=== PATIENT | female | born 1940 | race Caucasian/White ===

== ENCOUNTER 2017-12-15 08:18 | Inpatient (IN) | payer OTHER, SELFPAY ==
[2017-12-02 07:38] VITALS: BMI 27.1
[2017-12-15] VITALS (9 sets, daily range): BP systolic 114–139; BP diastolic 72–86; PULSE 64–93; RESP 14–18; TEMP 36–37; O2SAT 93–100; BMI 26.6
[2017-12-15] MEDS: LACTATED RINGERS 1,000 ML 42 ML IV ×2 (09:05→12:48)
[2017-12-15] MEDS: PREGABALIN 75 MG CAPSULE PO (09:12)
[2017-12-15] MEDS: MELOXICAM 7.5 MG TABLET 15 MG PO (09:12)
[2017-12-15] MEDS: ACETAMINOPHEN 325 MG TABLET 975 MG PO ×3 (09:12→20:28)
--- NOTE | 2017-12-15 10:33 | PM.PREOP ---
Pre-operative Note Interval Note Pre-op Check: Yes History & Physical Reviewed by Physician and Yes Exam Performed Changes: No
--- NOTE | 2017-12-15 10:33 | PM.OP.1 ---
Operative Date/Time/Diagnoses Date of procedure: 12/15/17 Time of procedure: 12:30 Pre-op diagnosis: Right knee osteoarthritis Post-op diagnosis: same Procedure & Clinicians Procedure: Right total knee replacement Same procedure as scheduled: Yes Indications: The patient has had progressively worsening right knee pain with radiographic changes consistent with arthritis. Non-operative management has failed and the patient has requested total knee replacement. The risks, benefits and alternatives to surgery were discussed with the patient prior to proceeding. Risks discussed included, but were not limited to, failure to relieve pain, stiffness, infection, nerve damage, deep venous thrombosis, pulmonary embolism, stroke, coma, heart attack, permanent paralysis and , as well as the potential need for eventual revision of the prosthetic. Surgeon: Bart Luevano Sales Representative Education Courses: Nai Morris Click Yes if Unassisted: No Anesthesia Type: General, Spinal and Local Operative Notes Findings: Significant lateral and moderate patellofemoral compartment osteoarthritis. Closure Type: primary Specimen(s): none sent Implants & Drains: Implants used in this procedure were manufactured by the [employer] and [employer] and included the BCS II Journey total knee replacement with a size 7 right cobalt chromium femur, a size 6 right non porous tibial base plate, a 10 mm crosslinked BCS II tibial insert, and a 35 mm oval Magaly II patellar component. Applied: implant(s) Estimated Blood Loss (mL): 100 Blood products transfused: none Tourniquet time (min): 52 Procedure in detail: The patient was seen in the pre-operative area, where the patient identified the right knee as the operative site and this was marked with my initials. The patient received pre-operative antibiotics, and was taken to the operating room and placed on the operative table in the supine position. After satisfactory anesthesia, a multimedia author out was performed. The right leg was encircled with a tourniquet about the proximal thigh, and the leg was prepared from the toes to the tourniquet with ChloroPrep in the usual fashion and draped through sterile drapes. The leg was elevated and exsanguinated with Eschmark bandage and the tourniquet inflated to 250 mmHg pressure. The knee was approached through an approximately 18 cm incision centered over the patella and carried into the knee through a medial parapatellar arthrotomy. The anterior osteophytes and soft tissues were removed. The rotational landmarks of [place]'s line and the transepicondylar axis were marked on the femur with electrocautery, and intramedullary guide holes for the femur and tibia were created. The distal femoral cut was made in 6 degrees of valgus using the intramedullary guide at the primary cut setting. The proximal tibial cut was then made using the intramedullary guide, taking 7 mm of bone off the less involved side. The extension gap was checked and the rotation of the femoral component confirmed with the gap balancing system. The anterior, posterior and chamfer cuts were then made. The posterior osteophytes and soft tissues were then removed. The posterior capsule was injected with part of a mixture of 50 ml 0.25% Marcaine mixed with 20 ml Exparel and 4 mg of morphine for post-operative pain control. The remainder of this mixture was injected into the capsule and subcutaneous tissues during cement curing. The tibia was prepared with the rotation set by an extra medullary guide. Trial tibial and femoral components were then placed and the intercondylar notch cut through the femoral trial. Range of motion was 0-140 degrees, with good stability throughout the range. The patella was then cut to accommodate the patellar prosthetic. There was no need for a lateral release. The trials were then removed, and the femoral hole plugged with a bone plug. The bone was prepared with pulsatile lavage, and dried with a sponge. Cement was applied and the final prosthetics placed. Excess cement was removed during and after cement curing. After confirming there was no extruded cement posteriorly, the final tibial insert was placed. The knee was copiously irrigated and the tourniquet deflated. Hemostasis was obtained. The capsule was closed with interrupted # 2 polyester suture. The subcutaneous layer was closed with 3-0 Vicryl, and the skin with a running 3-0 V-Lock suture and SteriStrips. An Aquacel Ag dressing was applied and the patient was taken to recovery having tolerated the procedure well. Complications: none Condition: stable Disposition: PACU Plan for aftercare: The patient will be maintained on a standard total knee replacement protocol with weight bearing as tolerated. The patient will receive aspirin and sequential compression devices for DVT prophylaxis. The patient will be discharged home when safe for the home environment.
--- NOTE | 2017-12-15 10:46 | SUR.PREOP ---
Block start time [1030] . Monitoring initiated and maintained throughout procedure. Oxygen and medications given per anesthesiologist instructions. Patient remained stable throughout procedure, no adverse reactions noted. Block end time [1039].
[2017-12-15] MEDS: CEFAZOLIN 1 GM VIAL IV (10:59)
[2017-12-15] MEDS: TRANEXAMIC ACID 1,000 MG VIAL 2000 MG INJ ×2 (11:20→12:16)
--- NOTE | 2017-12-15 11:30 | SUR.OPER ---
Supine on padded OR bed. Pillow under head, arms secured on padded armboards <90 degree abduction. Safety belt across torso. Non-operative leg secured with tape over blanket over lower leg. Operative leg secured in DeMayo/Maverick positioner. Foam padded brace at thigh of operative leg.
[2017-12-15] MEDS: BUPIVACAINE 0.25% W/ EPI VIAL 50 ML INJ (11:42)
[2017-12-15] MEDS: BUPIVACAINE LIPOSOME 266 MG/20 ML VIAL INJ (11:43)
--- NOTE | 2017-12-15 11:45 | PM.PROC.1 ---
Procedures Date/Time Date of procedure: 12/15/17 Time of procedure: 10:25 General Procedure description: Ultrasound guided adductor canal nerve block for post op pain control after right knee surgery by Dr. Luevano. Risk and benefits of procedure discussed with patient. ASA monitoring applied to patient. O2 given via nasal cannula. 1 mg Versed and 25 mcg fentanyl given for procedural sedation. Skin site was prepped with chlorhexidine and allowed to fully dry. Sterile gloves, mask, hat and probe cover were used to maintain sterility. 2% lidocaine and 30ga needle was used to make a small skin wheal at needle insertion site. Under ultrasound guidance, a 21ga 100mm Pajunk needle was directed into the adductor canal near femoral artery and saphenous nerve at the level of mid thigh. Patient reported no parasthesias. After negative aspiration, 20 mL 0.5% ropivicaine and 10mg dexamethasone were injected around saphenous nerve. Patient tolerated procedure well.
--- NOTE | 2017-12-15 11:48 | P.PCN_ITS ---
Procedures Date/Time Date of procedure: 12/15/17 Time of procedure: 10:25 General Procedure description: Ultrasound guided adductor canal nerve block for post op pain control after right knee surgery by Dr. Luevano. Risk and benefits of procedure discussed with patient. ASA monitoring applied to patient. O2 given via nasal cannula. 1 mg Versed and 25 mcg fentanyl given for procedural sedation. Skin site was prepped with chlorhexidine and allowed to fully dry. Sterile gloves, mask, hat and probe cover were used to maintain sterility. 2% lidocaine and 30ga needle was used to make a small skin wheal at needle insertion site. Under ultrasound guidance, a 21ga 100mm Pajunk needle was directed into the adductor canal near femoral artery and saphenous nerve at the level of mid thigh. Patient reported no parasthesias. After negative aspiration , 20 mL 0.5% ropivicaine and 10mg dexamethasone were injected around saphenous nerve. Patient tolerated procedure well.
[2017-12-15] MEDS: SODIUM CHLORIDE 0.9% FLUSH 15 ML IV (11:49)
--- NOTE | 2017-12-15 12:44 | DI.RAD.S_ITS ---
PROCEDURE: XR KNEE RT 1TO2V INDICATIONS: post operative total right knee TECHNIQUE: 2 views of the knee were acquired. COMPARISON: [facility] [place] [facility], KNEE SERIES RT, 01/15/2017, 7:26. FINDINGS: Bones: Interval placement of a right total knee arthroplasty with no periprosthetic fracture and for periprosthetic lucency to suggest loosening. There is anatomic alignment of the right knee. Soft tissues: There is a moderate-sized right knee joint effusion. There is subcutaneous emphysema within the soft tissues surrounding the right knee. IMPRESSION: Interval right total knee arthroplasty without evidence of acute hardware complication. Dictated by: Kaleb Devine M.D. on 12/15/2017 at 13:17 Approved by: Kaleb Devine M.D. on 12/15/2017 at 13:20
--- NOTE | 2017-12-15 13:17 | SUR.PHASEI ---
recd report and patient from Emily SABA. Patient resting NAD, no nausea and no pain spinal at L5 block still appears to be working. will call report to floor. Patient eatting ice chips. follows commands and arouses easy to voice.
[2017-12-15] MEDS: LACTATED RINGERS 1,000 ML 125 ML IV (15:01)
--- NOTE | 2017-12-15 16:54 | PC.NURSE ---
NAUSEA AND DIZZY WORKING WITH PT, PATIENT DID VOMIT A LITTLE.PT WILL WORK WITH AGAIN TOMORROW
--- NOTE | 2017-12-15 16:55 | PT.IIE ---
Current Diagnoses Unilateral primary osteoarthritis, right knee (12/15/17) Surgery Performed Operation Date: 12/15/17 10:15 Actual Procedures p Total Knee Arthroplasty(Right) - Bart Luevano MD Surgical History (Last Updated 12/02/17 @ 08:37 by Ania Call RN) Hx of adenoidectomy (Acute) Hx of dilation and curettage (Acute) Hx of tonsillectomy (Acute) Hx of tubal ligation (Acute) Medical History (Last Updated 12/02/17 @ 08:37 by Ania Call RN) Allergic rhinitis (Acute) Arthritis (Acute) Benign paroxysmal vertigo (Acute) Bilateral shoulder bursitis (Acute) Chronic low back pain (Acute) Generalized headaches (Acute) HTN (hypertension) (Acute) Hyperglycemia (Acute) Low magnesium level (Acute) Osteoporosis (Acute) Peripheral edema (Acute) Vasovagal syncope (Acute) Physical Therapy Inpatient Evaluation/Re-Eval M1 PT/OT-IP Prior Functional Status Start: 12/15/17 16:56 Freq: NEEDED Status: Active Protocol: Document 12/15/17 16:55 MDD (Rec: 12/15/17 17:09 MDD [id number]) Medical Review Prior Functional Status Medical History Reviewed Yes Communication normal Mobility and Gait independent with no AD Activities of Daily Living and IADL's independent Social History Household Members spouse Living Arrangements House Number of Floors (Floors) One Floor Number of Stairs To Enter/Railing? 2 steps to enter, no railings Home Environment Standard Height Toilet Tub/Shower Home Equipment Front Wheel Walker Raised Toilet Seat Without Armrests Shower Seat with Backrest Grab Bars Near Toilet Grab Bars In Shower Employment Status Retired Additional Social History Comment Pt lives in [place] with her , Raudel. Both her daughter and son are present during eval today as well, but do not live with them. M2 PT-IP Current Condition Start: 12/15/17 16:56 Freq: NEEDED Status: Active Protocol: Document 12/15/17 16:55 MDD (Rec: 12/15/17 17:09 MDD [id number]) Physical Therapy Current Condition Current Condition Evaluation Date 12/15/17 Treatment Diagnosis s/p R TKA Onset Date 12/15/17 Weight Bearing Status Weight Bearing Status Weight Bear as Tolerated M3 PT-IP Subjective Start: 12/15/17 16:56 Freq: NEEDED Status: Active Protocol: Document 12/15/17 16:55 MDD (Rec: 12/15/17 17:09 [facility] [id number]) Subjective Physical Therapy Visit Type Type Initial Evaluation Visit Start Time 16:37 Visit Stop Time 16:55 Total Visit Minutes 18 Notes BP supine: 122/77 mm Hg BP sitting EOB: 137/70 mm Hg Number of DIRECTOR ADVANCED Visits 0 Physical Therapy Visit Comments Patient Comments Pt reports dizziness/ lightheadedness when turning her head in bed. Denies nausea. Therapy Pain Assessment Pain When Pain Assessed At Rest Pain Present Pain Present Denied Pain M4 PT-IP Mobility and Gait Start: 12/15/17 16:56 Freq: NEEDED Status: Active Protocol: Document 12/15/17 16:55 MDD (Rec: 12/15/17 17:09 [facility] [id number]) PT-Bed Mobility Assessment Rolling Type of Rolling Roll to Left Level of Assist Independent Supine to Sit Supine to Sit Standby Assistance Head of Bed Elevated Bedrails Sit to Supine Sit to Supine Standby Assistance Head of Bed Elevated Bedrails PT-Transfer Assessment Comments Mobility Comments Pt reported dizziness sitting EOB for 2-3 minutes that did not improve and eventually vomited. Assisted pt return to bed. PT-Balance Assessment Sitting Balance and Reactions Static Sitting Balance Ability Normal Dynamic Sitting Balance Ability Normal M5 PT-IP Objective Assessments Start: 12/15/17 16:56 Freq: NEEDED Status: Active Protocol: Document 12/15/17 16:55 MDD (Rec: 12/15/17 17:09 [facility] [id number]) Orientation Orientation/Cognition Level of Alertness Alert Orientation Name Age Birthday Month Date Year Day of Week Place Situation Language Function Ability No Deficits Noted Safety Awareness Understands Safety Issues Memory Description No Deficits Noted Gross Range of Motion Lower Extremity ROM Assessment Within Functional Limits Strength Comments Strength Comments Pt demonstrates at least 3+/5 in major muscle groups today. Formal testing not performed as pt became nauseous and returned to bed. M6 PT-IP Treatment Start: 12/15/17 16:56 Freq: NEEDED Status: Active Protocol: Document 12/15/17 16:55 MDD (Rec: 12/15/17 17:09 [facility] [id number]) Physical Therapy Treatment Education Education Provided Weight Bearing Status Post-Op Packet Safety M7 PT-IP Assessment and Plan Start: 12/15/17 16:56 Freq: NEEDED Status: Active Protocol: Document 12/15/17 16:55 MDD (Rec: 12/15/17 17:09 MDD [id number]) PT Summary Assessment and Plan Potential Rehabilitation Potential Good Status of Condition at Evaluation Evolving Summary Impairments Pain ROM Bed Mobility Transfers Gait Activity Tolerance Progress Towards Goals Slow Progress due to Medical Issues Assessment Summary PT evaluation limited this day due to pt experiencing dizziness, nausea and vomiting when sitting EOB. She presents well below her functional baseline and will benefit from inpatient rehab to maximize function for safe d/c home. Pt does report a history of BPPV about 4 years ago after a fall and hitting her head. Daughter wonders if this may have become re- aggravated. No visible nystagmus noted today. PT will check back tomorrow am to reassess. Goals Bed Mobility Goal Independent Transfer Goal Independent Gait Goal Independent Front Wheel Walker Gait Distance 100 Other Goals ascend/descend 2 steps with handhold assist or cane ( whichever most appropriate) Days to Meet Goals 3 Frequency of Treatment Frequency Of Treatment Twice a Day Treatment Plan Physical Therapy Treatment Plan Bed Mobility Training Transfer Training Gait Training Therapeutic Exercise Post Op Education Recommendations To Nursing Amount of Assist Needed Independent PT/OT Assist Only Discharge Recommendations PT Discharge Recommendations Home Equipment Needed for Home Before Pt may benefit from using a Discharge cane for stairs at home.
[2017-12-15] MEDS: AMLODIPINE 5 MG TABLET 10 MG PO (18:11)
[2017-12-15] MEDS: CEFAZOLIN 2 GM/100 ML FROZ.PIGGY IV (18:12)
[2017-12-15] MEDS: ASPIRIN EC 81 MG TABLET PO (20:29)
[2017-12-15] MEDS: DOCUSATE 100 MG CAPSULE PO (20:29)
[2017-12-15] MEDS: POTASSIUM CHLORIDE 20 MEQ TAB PO (20:29)
[2017-12-16] VITALS (7 sets, daily range): BP systolic 96–124; BP diastolic 59–78; PULSE 56–77; RESP 16–18; TEMP 36.3–36.8; O2SAT 96–100
[2017-12-16] MEDS: LACTATED RINGERS 1,000 ML 125 ML IV (01:24)
[2017-12-16] MEDS: CEFAZOLIN 2 GM/100 ML FROZ.PIGGY IV (03:02)
--- NOTE | 2017-12-16 05:09 | PC.NURSE ---
NOC shift: Pt denies pain most of this shift. Using the bedpan, denies nausea. O2 turned down to 0.5L, sating 98% while sleeping. 1PA with bed mobility.
[2017-12-16 07:15] LABS: Hematocrit 30.7 % (36-46); Hemoglobin 10.5 g/dL (12.0-16.0)
--- NOTE | 2017-12-16 07:38 | PM.DS.1 ---
History of Present Illness Date Patient Seen: 12/16/17 Time Patient Seen: 07:35 Chief complaint: [id number] Narrative: History of present illness and physical examination is contained in the chart are previously completed note. Please refer to that note for this information. Discharge Providers Date of admission: 12/15/17 08:18 Primary care physician: Mary Carmen Gautam PA-C Consults: 12/15/17 13:56 Consult to Discharge Planning Routine Comment: Consult to Physical Therapy Evaluate & Treat Comment: Physician Instructions: postop TKA protocol Discharge provider: Bart Luevano MD Discharge Date: 12/16/17 Summary Discharge Diagnosis: 1. Right knee osteoarthritis 2. Mild post hemorrhagic anemia Hospital Course: The patient was admitted the hospital and taken directly to the operating room where she underwent a right total knee replacement on December 15, 2017. She was stable postoperatively but had an episode of emesis and dizziness when she attempted to ambulate. She was held in the hospital for 1 additional day and was feeling quite well morning of postop day 1. It was felt that she would be stable for discharge on postoperative day 1. Status at Discharge Cognitive/behavioral status at discharge: At baseline Functional status at discharge: uses cane/walker Overall status at discharge: patient is progressing back to baseline Time Spent with Patient Less than 30 minutes Exam Vital Signs (past 8 hours): - 12/16/17 00:25 12/16/17 05:20 Temperature 97.3 F L 97.6 F Pulse Rate 73 76 Respiratory Rate 17 17 Blood Pressure 116/68 96/59 L Pulse Oximetry 99 99 Oxygen Delivery Method Nasal Cannula Oxygen Flow Rate 2 Narrative Exam Narrative: Right knee wound is dressed with no drainage on the bandage. Calf is soft. Light touch and motion are intact in the right lower extremity. Objective Labs Result Diagrams: 12/16/17 06:45 Labs: Laboratory Results - last 24 hr 12/16/17 06:45 Hgb 10.5 L Hct 30.7 L Discharge Plan Discharge Plan Patient Disposition: Home Discharge Med Rec/Prescriptions Prescriptions: New aspirin 81 mg Tablet,Delayed Release (Dr/Ec) 81 mg PO BID 42 Days Qty: 84 RF: 0 oxycodone 5 mg Tablet 5 mg PO Q3HR PRN (Reason: Pain, Moderate (4-6)) Qty: 60 RF: 0 Continue metoprolol succinate 50 mg Tablet Extended Release 24 Hr 50 mg PO DAILY RF: 0 hydrochlorothiazide 50 mg Tablet 50 mg PO DAILY RF: 0 quinapril 40 mg Tablet 40 mg PO QAM RF: 0 amlodipine 10 mg Tablet 10 mg PO QPM RF: 0 ibuprofen 400 mg Tablet 400 mg PO DAILY PRN (Reason: pain) RF: 0 loratadine [Allerclear] 10 mg Tablet 10 mg PO DAILY RF: 0 magnesium oxide 500 mg Capsule 125 mg PO QPM RF: 0 potassium chloride 20 mEq Tablet Extended Release 20 meq PO BID RF: 0 Follow up/Referrals: Bart Luevano MD [Physician] - 3-5 Days Provider Discharge Instructions Diet: Diet as Tolerated and Regular Activity: You may walk as tolerated and put as much weight as you can tolerate on her leg. Cold/Heat Therapy: Apply ice to the surgical site for 15 min every hour as needed. Skin/Wound/Dressing Care Report to your healthcare provider any signs of infection, such as:: chills, fever, night sweats, increased pain and unusual drainage Dressing: You may remove the Uriel wrap 3 days after surgery and take a shower with the lower dressing in place. If the central slip of the deep dressing gets wet with water or blood please call the office. Discharge Data Primary Care Provider: Mary Carmen Gautam Attending Provider: Bart Luevano Admit Date/Time: 12/15/17 08:18 Quality VTE Deep Vein Thrombosis/Pulmonary Embolism Present on Admission: No
--- NOTE | 2017-12-16 09:30 | PC.NURSE ---
Addendum entered by Astrid Hutchins R.N. 12/16/17 10:00: Patient reporting that she feels better. BP's after light-headed episode were 80/50 (at 0933), then 85/55,(0936) then 87/58 (0939). At 1001 BP measured at 105/59. Patient requesting pain medications for 04/30 pain. Original Note: Addendum entered by Astrid Hutchins R.N. 12/16/17 09:31: PT assisted pt in room and to stairs. Patient became light-headed at the top of the stairs and needed to sit and be taken back to room with WC. Patient reporting feeling nauseous. Cold compress given and pt returned to room. BP 80/50 [place] in bed. Reporting feeling better once in bed. Original Note: AM Shift pt denying pain. Able to wiggle toes and lift both legs off bed. Patient saline locked. Denying nausea.
--- NOTE | 2017-12-16 09:40 | PT.IPTN ---
Current Diagnoses Unilateral primary osteoarthritis, right knee (12/15/17) Surgery Performed Operation Date: 12/15/17 10:15 Actual Procedures p Total Knee Arthroplasty(Right) - Bart Luevano MD Physical Therapy Treatment Note M2 PT-IP Current Condition Start: 12/15/17 16:56 Freq: NEEDED Status: Active Protocol: Document 12/16/17 09:40 RCC (Rec: 12/16/17 10:00 RCC [id number]) Physical Therapy Current Condition Current Condition Evaluation Date 12/15/17 Treatment Diagnosis s/p R TKA Onset Date 12/15/17 Weight Bearing Status Weight Bearing Status Weight Bear as Tolerated M3 PT-IP Subjective Start: 12/15/17 16:56 Freq: NEEDED Status: Active Protocol: Document 12/16/17 09:40 RCC (Rec: 12/16/17 10:00 RCC [email or web address]) Subjective Physical Therapy Visit Type Type Treatment Note Visit Start Time 08:40 Visit Stop Time 09:40 Total Visit Minutes 60 Notes BP @ start of session: 117/67 BP after stairs: 80/50 trendelenburg BP after 2 min: 85/55 trendelenburg BP after 5 additional min: 90/63 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 Upon performing stairs, pt reported feeling dizzy and sweating. Therapy Pain Assessment Pain When Pain Assessed At Rest Pain Present Pain Present Pain Reported Location Right Knee Intensity 1 Scale Used Numeric (1 - 10) M4 PT-IP Mobility and Gait Start: 12/15/17 16:56 Freq: NEEDED Status: Active Protocol: Document 12/16/17 09:40 RCC (Rec: 12/16/17 10:00 RCC [email or web address]) PT-Bed Mobility Assessment Supine to Sit Supine to Sit Standby Assistance Sit to Supine Sit to Supine Moderate Assistance 1 Person Assistance Scooting Scooting to Edge of Bed Standby Assistance PT-Transfer Assessment Sit to and From Stand Sit to and from Stand Standby Assistance Equipment Transfer Assistive Device Gait Belt Front Wheeled Walker Transfers Transfer Destination Bed Wheelchair Transfer Technique Stand Step Pivot Transfer Ability Level of Assist Standby Assistance Comments Mobility Comments Initially pt was indep and SBA for mobility, but required increased assistance getting into bed and w/c after c/o dizziness after stair training . Gait Assessment Gait Gait Assistance Required: Standby Assistance Distance (Feet) (feet) 50 Assistive Devices Assistive Device Gait Belt Front Wheeled Walker Gait Deviations General Gait Pattern Decreased Stride Length Decreased Feet Clearance Step-to Gait Factors Limiting Gait Function Factors Limiting Gait Function Decreased Strength Limited Range of Motion Pain Poor Balance Stair Climbing Assessment Evaluation Level of Assist On Stairs Minimal Assistance 1 Person Assistance Technique/Endurance Stair Climbing Direction Ascend and Descend Stair Climbing Technique Step to Step Number of Steps Climbed 3 Query Text: Stair Climbing Set # Repetitions (reps) 1 Comments Stair Climbing Comments PT's hand/arm used for UE stability with stairs, Min A. Pt c/o dizziness after stair training, requested to sit. M5 PT-IP Objective Assessments Start: 12/15/17 16:56 Freq: NEEDED Status: Active Protocol: Document 12/16/17 09:40 RCC (Rec: 12/16/17 10:00 RCC [email or web address]) Gross Range of Motion Lower Extremity ROM Impairments R knee flexion to 95 deg. M6 PT-IP Treatment Start: 12/15/17 16:56 Freq: NEEDED Status: Active Protocol: Document 12/16/17 09:40 RCC (Rec: 12/16/17 10:00 RCC [email or web address]) Physical Therapy Treatment Education Education Provided Safety M7 PT-IP Assessment and Plan Start: 12/15/17 16:56 Freq: NEEDED Status: Active Protocol: Document 12/16/17 09:40 RCC (Rec: 12/16/17 10:00 RCC [email or web address]) PT Summary Assessment and Plan Summary Impairments ROM Strength Balance Bed Mobility Transfers Gait Activity Tolerance Progress Towards Goals Slow Progress due to Medical Issues Assessment Summary POD #1 R TKA. Pt able to ambulate 50 ft and perform stairs with assistance, but became significantly dizzy after performing the stairs and requested to immediately sit. RN obtained a chair for pt, where pt was so dizzy that she did not feel safe transferring to w/ when one was obtained. No portable BP cuff/monitor available, therefore transferred pt to w/ c and back to room and bed with increased assistance. BP down to 80/50, placed in trendelenburg in bed. BP rising slow but steady. Pt is able to ambulate 50 ft and perform stairs, but significant decrease in BP, increased dizziness and diaphoresis, pt appears she is not safe to return home this morning, and may need an additional day in hospital for recovery and progression if not able to reach goals Goals Bed Mobility Goal Independent Transfer Goal Independent Gait Goal Independent Front Wheel Walker Gait Distance 100 Other Goals ascend/descend 2 steps with handhold assist or cane ( whichever most appropriate) Days to Meet Goals 3 Frequency of Treatment Frequency Of Treatment Twice a Day Treatment Plan Other Recommendations and Next Treatment prog. gait, monitor BP, CG Focus training. Recommendations To Nursing Amount of Assist Needed 1 Person Assist Discharge Recommendations PT Discharge Recommendations Home
[2017-12-16] MEDS: ACETAMINOPHEN 325 MG TABLET 975 MG PO ×3 (10:05→21:23)
[2017-12-16] MEDS: LORATADINE 10 MG TABLET PO (10:06)
[2017-12-16] MEDS: DOCUSATE 100 MG CAPSULE PO ×2 (10:06→21:23)
[2017-12-16] MEDS: ASPIRIN EC 81 MG TABLET PO ×2 (10:06→21:24)
[2017-12-16] MEDS: POTASSIUM CHLORIDE 20 MEQ TAB PO ×2 (10:07→21:23)
--- NOTE | 2017-12-16 13:30 | PT.IPTN ---
Current Diagnoses Unilateral primary osteoarthritis, right knee (12/15/17) Surgery Performed Operation Date: 12/15/17 10:15 Actual Procedures p Total Knee Arthroplasty(Right) - Bart Luevano MD Physical Therapy Treatment Note M2 PT-IP Current Condition Start: 12/15/17 16:56 Freq: NEEDED Status: Active Protocol: Document 12/16/17 13:30 RCC (Rec: 12/16/17 14:08 [facility] [id number]) Physical Therapy Current Condition Current Condition Evaluation Date 12/15/17 Treatment Diagnosis s/p R TKA Onset Date 12/15/17 Weight Bearing Status Weight Bearing Status Weight Bear as Tolerated M3 PT-IP Subjective Start: 12/15/17 16:56 Freq: NEEDED Status: Active Protocol: Document 12/16/17 13:30 RCC (Rec: 12/16/17 14:08 [facility] [id number]) Subjective Physical Therapy Visit Type Type Treatment Note Visit Start Time 13:00 Visit Stop Time 13:30 Total Visit Minutes 30 Notes BP supine @ start of session: 114/79 BP @ end of session: 120/71 Number of DEEP TISSUE MASSAGE THERAPIST Visits 0 Physical Therapy Visit Comments Patient Comments Pt with slight lightheadedness , but not as severe as earlier this date. Therapy Pain Assessment Pain When Pain Assessed At Rest Pain Present Pain Present Pain Reported Location Right Knee Intensity 1 Scale Used Numeric (1 - 10) M4 PT-IP Mobility and Gait Start: 12/15/17 16:56 Freq: NEEDED Status: Active Protocol: Document 12/16/17 13:30 RCC (Rec: 12/16/17 14:08 [facility] [id number]) PT-Bed Mobility Assessment Supine to Sit Supine to Sit Standby Assistance Sit to Supine Sit to Supine Standby Assistance Scooting Scooting to Edge of Bed Standby Assistance PT-Transfer Assessment Sit to and From Stand Sit to and from Stand Standby Assistance Equipment Transfer Assistive Device Gait Belt Front Wheeled Walker Transfers Transfer Destination Bed Transfer Technique Stand Step Pivot Transfer Ability Level of Assist Standby Assistance Gait Assessment Gait Gait Assistance Required: Standby Assistance Distance (Feet) (feet) 65 Assistive Devices Assistive Device Gait Belt Front Wheeled Walker Gait Deviations General Gait Pattern Decreased Stride Length Decreased Feet Clearance Step-to Gait Factors Limiting Gait Function Factors Limiting Gait Function Decreased Strength Limited Range of Motion Pain Poor Balance M5 PT-IP Objective Assessments Start: 12/15/17 16:56 Freq: NEEDED Status: Active Protocol: Document 12/16/17 13:30 RCC (Rec: 12/16/17 14:08 [facility] [id number]) Gross Range of Motion Lower Extremity ROM Impairments R knee AROM to 5-95 deg. M6 PT-IP Treatment Start: 12/15/17 16:56 Freq: NEEDED Status: Active Protocol: Document 12/16/17 13:30 RCC (Rec: 12/16/17 14:08 [facility] [id number]) Physical Therapy Treatment Exercises Exercises Ankle Pumps Quad Sets Heel Slides M7 PT-IP Assessment and Plan Start: 12/15/17 16:56 Freq: NEEDED Status: Active Protocol: Document 12/16/17 13:30 RCC (Rec: 12/16/17 14:08 [facility] [id number]) PT Summary Assessment and Plan Summary Progress Towards Goals Slow Progress due to Medical Issues Assessment Summary POD #1 R TKA, second session this date. Pt with stable BP, but did not perform stairs this date. She fatigues with 50-65 ft of gait, step-to gait pattern. Her was present, and appears to be able to assist her upon d/c. Pt would likely greatly benefit from an additional day of physical therapy to assist with improved tolerance to activity, however, this appears to be more of a medical issue/concern at this point. Goals Bed Mobility Goal Independent Transfer Goal Independent Gait Goal Independent Front Wheel Walker Gait Distance 100 Days to Meet Goals 3 Frequency of Treatment Frequency Of Treatment Twice a Day Treatment Plan Other Recommendations and Next Treatment gait, stairs, CG training. Focus Recommendations To Nursing Amount of Assist Needed 1 Person Assist Discharge Recommendations PT Discharge Recommendations Home with Assistance Outpatient PT
[2017-12-16] MEDS: MAGNESIUM OXIDE 400 MG TABLET 100 MG PO (16:50)
[2017-12-16] MEDS: AMLODIPINE 5 MG TABLET 10 MG PO (16:50)
[2017-12-17] MEDS: IBUPROFEN 400 MG TABLET PO (01:40)
[2017-12-17 01:50] VITALS: BP 111/67; PULSE 75; RESP 17; TEMP 36.7; O2SAT 97
[2017-12-17] MEDS: OXYCODONE IR 5 MG TABLET PO ×2 (04:23→10:01)
[2017-12-17] MEDS: ONDANSETRON 4 MG ODT PO ×2 (04:23→09:56)
--- NOTE | 2017-12-17 04:39 | PC.NURSE ---
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 High fall risl precautions in place, Pt OOB with 1PA to BR without light-headedness/dizziness. Right knee aquacel dressing intact with a few scant bloody shadowing drainage. Covered with mingo wrap. CMS+, PPP, pt able to move extremitiy but not lift off bed from lying position. Right lower leg elevated on pillow below knee. Pt refused Calf SCD's. Pain 4/10 aching & sore, prn Ibuprofen given at 0140. Upon reassessment, pain decreased to 3.5/10, pt originally hesitant to take Oxycodone as she stated her took and created severe N/V. Pt then accepted to take with a prn anti-nausea med. Oxycodone prn given at 0425 with prn Zofran SL. Pt hopeful to be discharged in AM.
[2017-12-17 05:00] VITALS: BP 111/70; PULSE 68; RESP 17; TEMP 36.7; O2SAT 94
[2017-12-17 07:20] VITALS: BP 103/61; PULSE 73; RESP 16; TEMP 36.8; O2SAT 97
--- NOTE | 2017-12-17 09:20 | PT.IPTN ---
Current Diagnoses Unilateral primary osteoarthritis, right knee (12/15/17) Surgery Performed Operation Date: 12/15/17 10:15 Actual Procedures p Total Knee Arthroplasty(Right) - Bart Luevano MD Physical Therapy Treatment Note M2 PT-IP Current Condition Start: 12/15/17 16:56 Freq: NEEDED Status: Active Protocol: Document 12/16/17 13:30 RCC (Rec: 12/16/17 14:08 [facility] [id number]) Physical Therapy Current Condition Current Condition Evaluation Date 12/15/17 Treatment Diagnosis s/p R TKA Onset Date 12/15/17 Weight Bearing Status Weight Bearing Status Weight Bear as Tolerated M3 PT-IP Subjective Start: 12/15/17 16:56 Freq: NEEDED Status: Active Protocol: Document 12/17/17 09:20 MDD (Rec: 12/17/17 09:40 MDD [id number]) Subjective Physical Therapy Visit Type Type Treatment Note Visit Start Time 08:54 Visit Stop Time 09:20 Total Visit Minutes 26 Notes BP sitting EOB: 113/69 mm Hg Standin/67 mm Hg After activity: 93/61 mm Hg Semi supine x 5 minutes: 123/ 69 mm Hg Physical Therapy Visit Comments Patient Comments Pt reports feeling much better today than yesterday. Denies dizziness or nausea. Therapy Pain Assessment Pain When Pain Assessed At Rest Pain Present Pain Present Pain Reported Location Right Knee Intensity 1 Scale Used Numeric (1 - 10) Description Aching Pain Management Techniques Apply Cold Timing of Activity with Medications M4 PT-IP Mobility and Gait Start: 12/15/17 16:56 Freq: NEEDED Status: Active Protocol: Document 12/16/17 13:30 RCC (Rec: 12/16/17 14:08 RCC [id number]) PT-Bed Mobility Assessment Supine to Sit Supine to Sit Standby Assistance Sit to Supine Sit to Supine Standby Assistance Scooting Scooting to Edge of Bed Standby Assistance PT-Transfer Assessment Sit to and From Stand Sit to and from Stand Standby Assistance Equipment Transfer Assistive Device Gait Belt Front Wheeled Walker Transfers Transfer Destination Bed Transfer Technique Stand Step Pivot Transfer Ability Level of Assist Standby Assistance Gait Assessment Gait Gait Assistance Required: Standby Assistance Distance (Feet) (feet) 65 Assistive Devices Assistive Device Gait Belt Front Wheeled Walker Gait Deviations General Gait Pattern Decreased Stride Length Decreased Feet Clearance Step-to Gait Factors Limiting Gait Function Factors Limiting Gait Function Decreased Strength Limited Range of Motion Pain Poor Balance M5 PT-IP Objective Assessments Start: 12/15/17 16:56 Freq: NEEDED Status: Active Protocol: Document 12/16/17 13:30 RCC (Rec: 12/16/17 14:08 RCC [id number]) Gross Range of Motion Lower Extremity ROM Impairments R knee AROM to 5-95 deg. M6 PT-IP Treatment Start: 12/15/17 16:56 Freq: NEEDED Status: Active Protocol: Document 12/17/17 09:20 MDD (Rec: 12/17/17 09:40 MDD [id number]) Physical Therapy Treatment Education Education Provided Precautions Weight Bearing Status Safety Other Treatments Other Treatment Performed Pt performed bed mobility supine <> sit with SBA using gait belt for R LE. Gait training to stairs and back with SBA using FWW (104 feet). Demonstrating more normalized step through gait pattern with cueing. Pt ascended/descended 3 steps with very light handhold assist. Did not report any lightheadedness or dizziness. M7 PT-IP Assessment and Plan Start: 12/15/17 16:56 Freq: NEEDED Status: Active Protocol: Document 12/17/17 09:20 MDD (Rec: 12/17/17 09:40 MDD [id number]) PT Summary Assessment and Plan Potential Rehabilitation Potential Excellent Status of Condition at Evaluation Evolving Summary Impairments Pain ROM Progress Towards Goals Progressing Toward Goals Safe For Discharge Goals Met Assessment Summary Pt demonstrates independence with bed mobility and gait this day. Her blood pressure did drop a bit with activity, but returned to baseline within 5 minutes rest in supine. Pt educated to move slowly during transitions at home and stop with any sign of lightheadedness. Pt was able to ascend/descend steps with only light handhold assist. Considered safe to d/c home when medically appropriate. Goals Bed Mobility Goal Independent Transfer Goal Independent Gait Goal Independent Front Wheel Walker Gait Distance 100 Days to Meet Goals 3 Frequency of Treatment Frequency Of Treatment Twice a Day Treatment Plan Other Recommendations and Next Treatment gait, stairs, CG training. Focus Recommendations To Nursing Amount of Assist Needed 1 Person Assist Discharge Recommendations PT Discharge Recommendations Home with Assistance Outpatient PT
[2017-12-17] MEDS: ACETAMINOPHEN 325 MG TABLET 975 MG PO (09:56)
[2017-12-17] MEDS: DOCUSATE 100 MG CAPSULE PO (09:57)
[2017-12-17] MEDS: ASPIRIN EC 81 MG TABLET PO (09:57)
[2017-12-17] MEDS: POTASSIUM CHLORIDE 20 MEQ TAB PO (09:59)
[2017-12-17] MEDS: LORATADINE 10 MG TABLET PO (09:59)
--- NOTE | 2017-12-17 10:38 | CM.DPC ---
DCP/continued: Reviewed chart. Patient anticipated to d/c from [facility] today. Spoke with RN about getting order to cancel d/c from yesterday. Met with patient and she confirms plan to d/c today. Patient has friend picking her up. Important Message from [employer] signed at approximately 10:25AM. P: Home today. CHRISTIAN Wolff
== END 2017-12-17 12:34 | disposition home or self-care (01) | DRG 470 ==
PROVIDERS: Admitting Provider Orthopaedic Surgery; PCP Physician Assistant; Visit Provider Orthopaedic Surgery
PROC: 0SRC0JZ Replacement of Right Knee Joint with Synthetic Substitute, Open Approach (ICD-10-PCS; CPT 27447; principal; 2017-12-15 10:15)
DX: M17.11 Unilateral primary osteoarthritis, right knee (principal); I10 Essential (primary) hypertension; R11.2 Nausea with vomiting, unspecified; R42 Dizziness and giddiness
CPT/HCPCS: 36415; 64450; 73560; 85014; 85018; 97110; 97116; 97161; 97530; C1776; C9290; J0690; J1100; J2250; J2405; J2704; J2795; J3010